=== PATIENT | male | born 1950 | race Hispanic/Latino ===

== ENCOUNTER 2018-12-21 17:53 | Inpatient (IN) | payer SELFPAY ==
[2018-12-22] MEDS ORDERED: Fentanyl 100 MCG/2 ML VIAL ONE ×2 (01:04→03:29)
[2018-12-22] MEDS ORDERED: Bupivacaine PF 0.5% 30 ML VIAL ONE (01:26)
[2018-12-22] MEDS ORDERED: Bacitracin Zinc Ointment 30 gm TUBE ONE (01:27)
[2018-12-22] MEDS ORDERED: Sodium Chloride 0.9% 30 ML ONE (01:27)
[2018-12-22] MEDS ORDERED: traMADol HCl 50 MG TAB PO PRN (01:54)
[2018-12-22] MEDS ORDERED: Fentanyl 100 MCG/2 ML VIAL SLOW IVP PRN (01:54)
[2018-12-22] MEDS ORDERED: HYDROcodone/Acetaminophen 5/325 mg Tablet PO PRN (01:54)
[2018-12-22] MEDS ORDERED: Milk Of Magnesia 30 ML UDCUP PO PRN (01:54)
[2018-12-22] MEDS ORDERED: Morphine 4 MG/ML VIAL SLOW IVP PRN (01:54)
[2018-12-22] MEDS ORDERED: TETANUS AND DIPHTHERIA TOX/PF 0.5 ML DISP.SYRIN IM SCH (02:00)
[2018-12-22] MEDS ORDERED: Communication Order-Pharmacy FS PRN (02:00)
[2018-12-22] MEDS ORDERED: Meperidine HCl/PF 25 MG/ML VIAL IM PRN (02:06)
[2018-12-22 04:28] VITALS: BMI 31.6
[2018-12-22 05:33] LABS: #Lymphocytes 0.5 thou/uL (1.20-3.40); #Monocytes 0.1 thou/uL (0.11-0.59); #Neutrophils 6.5 thou/uL (1.40-6.50); %Basophils 0.1 % (0.0-1.0); %Eosinophils 0.3 % (0.0-10.0); %Lymphocytes 7.4 % (21.0-51.0); %Monocytes 1.5 % (0.0-10.0); %Neutrophils 90.8 % (42.0-75.0); Hemoglobin 13.8 g/dL (14.0-18.0); Mean Corpuscular HGB CONC 34.2 g/dL (32.0-36.0); Mean Corpuscular Hemoglobin 31.8 pg (27.0-31.0); Mean Corpuscular Volume 93.2 fL (78.0-98.0); Mean Platelet Volume 8.2 fL (7.4-10.4); Platelet Count 182 thou/uL (130-400); RBC Distribution Width 11.4 % (11.5-14.5); Red Blood Cell (RBC) Count 4.34 mill/uL (4.70-6.10); White Blood Cell (WBC) Count 7.1 thou/uL (4.8-10.8)
[2018-12-22] MEDS: Ketorolac Tromethamine 30 MG/ML VIAL IVP SCH ×3 (05:47→16:29)
--- NOTE | 2018-12-22 07:56 | RAD ---
XR Finger(s) Lt Min 2 View History: Soft tissue repair Comparison: None. Findings: 2 spot images were obtained from the operating room. Impression: Fluoroscopy for surgical use.
[2018-12-22] MEDS ORDERED: Aspirin 81 mg Enteric Coated Tablet PO SCH (09:00)
[2018-12-22] MEDS ORDERED: Vancomycin HCl 1 GM in Premix Bag 1 BAG IVPB SCH (12:00)
[2018-12-22 15:42] VITALS: BP 162/72; TEMP 97.6
--- NOTE | 2018-12-22 22:01 | OP ---
DATE OF PROCEDURE: 12/22/2018 PREOPERATIVE DIAGNOSES: 1. Fracture, left arm distal phalanx. 2. Nail bed laceration, right left thumb complex. 3. Wound 4 cm left thumb with complex loss of pulp space and some mild compromise of tip circulation. PROCEDURE PERFORMED: 1. Left thumb debridement. 2. Open fracture and treatment, distal phalanx fracture, left middle finger. 3. Debridement of wound. 4. Open treatment distal phalanx fracture, left thumb. 5. Nail bed repair, left thumb. 6. Complex wound closure 4 cm, left thumb pulp space. 7. Removal of nail. INDICATION: The patient with a log fall over the thumb, not amputated, but causing to loss some marked substance. Debridement technique as follows: 1. Incisional technique. 2. Instrumentation, [employer] blade, 11 blade knife, tenotomy scissors, Adson, Pulsavac irrigation, curette, depth down to and including bone. COMPLICATIONS: None. PROCEDURES: 1. Open treatment distal phalanx fracture without internal fixation, left thumb. 2. Removal of nail with repair of nailbed, left thumb distal phalanx. 3. Closure 4 cm wound now taken down to the proximal phalanx in order to comply. ESTIMATED BLOOD LOSS: 50 mL. ANESTHESIA: General LMA technique. DESCRIPTION OF PROCEDURE: After successful general endotracheal anesthesia, the limb was prepped and draped. The patient had time-out done appropriately. We already counseled the fact that, we would attempt for limb salvage, but if it is not a limb salvage, the patient want to consider early loss of leg. The patient had debridement techniques listed above done without exsanguination of the limb. First removed the thumbnail, saw the extend of the nailbed damage, visualized C-arm where it was a small tuft, partial fracture and then finished debridement of material associated with open fracture and prepared for deep inspection. Once finished debridement and treatment open fracture, we repaired the nail bed with a 5-0 chromic suture, finished to rule out abnormal hematoma issues, and then the pulp space was secured with a running interrupted 4-0 nylon without evidence of anesthetic or operative complication. A short small bulky dressing was applied. The patient left the operating room where he was discharged the next day without evidence of anesthetic or operative complication. Job ID: [id number]
--- NOTE | 2018-12-23 10:55 | DIS ---
DATE OF ADMISSION: 12/22/2018 DATE OF DISCHARGE: 12/22/2018 ADMISSION DIAGNOSES: 1. Fracture, left thumb distal phalanx, grade 2. 2. Nail bed laceration, left thumb. 3. Wound, 4 cm, complex, left thumb. DISCHARGE DIAGNOSES: 1. Fracture, left thumb distal phalanx, grade 2. 2. Nail bed laceration, left thumb. 3. Wound, 4 cm, left thumb. HOSPITAL PROCEDURES: Debridement of left thumb wound. HOSPITAL COURSE: The patient was admitted and immediately because of the open nature of the open fracture, possible neurovascular compromise, he underwent debridement of wound, debridement of the fracture and bone, repair of nail bed, closure of 4 cm wound, open fracture and open treatment. He had an IV antibiotics before and after surgery. Tolerated the procedure well. The next day, approximately 12 hours of surgery, he had a bulky dressing intact. We did not change dressing because of the need to preserve vascularity without causing delay as soon as possible. He then was prepared for discharge to a regular diet. Follow up with us on December 27, [address] Diaz's office. Job ID: [id number]
== END 2018-12-22 18:50 | disposition home or self-care (01) | DRG 514 ==
LOC: SDC 17:53 → SURG A 12-22 04:00
PROVIDERS: ADMIT Orthopaedic Surgery Hand Surgery; ATTEND Orthopaedic Surgery Hand Surgery
PROC: 0PSS0ZZ Reposition Left Thumb Phalanx, Open Approach (ICD-10-PCS; principal; 2018-12-22)
PROC: 0HBQXZZ Excision of Finger Nail, External Approach (ICD-10-PCS; 2018-12-22)
DX: S62.522B Displaced fracture of distal phalanx of left thumb, initial encounter for open fracture (principal); X58.XXXA Exposure to other specified factors, initial encounter; I10 Essential (primary) hypertension; N40.0 Benign prostatic hyperplasia without lower urinary tract symptoms
CPT/HCPCS: 36415; 76000; 85025; 90714; J1885; J3010; J3370; J3490; S0020